=== PATIENT | female | born 1945 | race Caucasian/White ===

== ENCOUNTER 2019-04-25 10:57 | Emergency (ER) | payer MEDICARE, BC ==
[~2019-04-25] VITALS: Ht 172.7 cm; Wt 89.4 kg
[~2019-04-25 10:57] MED LIST: BUDE32NIS; CITRACAL; Coumadin2 MG PO; DIAZ5 PO; ERGO400 PO; FURO20 PO; HYDMOR2 PO; IBAN2.5 PO; IRBE150 PO; IRBHYD300 PO; LANS30EC PO; MONT10T PO; POTA10T PO; ROSU5 PO; Reclast 55 MG/100 M IV; WARF4 PO
[2019-04-25 11:35] LABS: BASOPHILS ABSOLUTE AUTO 0.02 K/mm3 (0.00-0.23); BASOPHILS PERCENT AUTO 0 % (0-2); EOSINOPHILS ABSOLUTE AUTO 0.05 K/mm3 (0.00-0.68); EOSINOPHILS PERCENT AUTO 1 % (0-6); Hematocrit 25.5 % (33.0-51.0); Hemoglobin 8.2 g/dL (11.5-16.0); IMMATURE GRAN ABSOLUTE AUTO 0.05 K/mm3 (0.00-0.10); IMMATURE GRAN PERCENT AUTO 1 % (0-1); LYMPHOCYTES PERCENT AUTO 17 % (21-46); MONOCYTES ABSOLUTE AUTO 0.58 K/mm3 (0.16-1.47); MONOCYTES PERCENT AUTO 8 % (4-13); Mean Corpuscular HGB 31.9 pg (26.0-34.0); Mean Corpuscular HGB Conc 32.2 g/dL (31.5-36.5); Mean Corpuscular Volume 99 fL (80-100); Mean Platelet Volume 10.3 fL (9.1-12.4); NEUTROPHILS ABSOLUTE AUTO 5.18 K/mm3 (1.96-9.15); NEUTROPHILS PERCENT AUTO 73 % (41-73); Platelet Count 185 K/mm3 (150-400); RDW Coefficient Variation 14.1 % (11.7-14.2); RDW Standard Deviation 51.4 fL (35.1-46.3); Red Blood Cell Count 2.57 M/mm3 (3.80-5.20); White Blood Cell Count 7.08 K/mm3 (4.00-11.30)
[2019-04-25 11:49] LABS: Alanine Aminotransfer (ALT/SGP 30 U/L (12-78); Albumin, Blood 2.1 g/dL (3.4-5.0); Albumin/Globulin Ratio 0.4 (0.8-1.8); Alk Phos 61 U/L (50-136); Anion Gap 5 mmol/L (6-16); Aspartate Aminotrans (AST/SGOT 47 U/L (12-37); Bilirubin, Total 0.4 mg/dL (0.1-1.0); Blood Urea Nitrogen 32 mg/dL (8-24); Bun/Creatinine Ratio 27.1 (12.0-20.0); CO2, Blood 25 mmol/L (21-32); Calcium, Blood 7.9 mg/dL (8.5-10.1); Chloride, Blood 104 mmol/L (98-108); Creatinine, Blood 1.18 mg/dL (0.40-1.00); Globulin, Blood 5.4 g/dL (2.2-4.0); Glomerular Filtration Rate 48 (60-); Glucose, Blood 121 mg/dL (70-99); Potassium, Blood 4.8 mmol/L (3.5-5.5); Sodium, Blood 134 mmol/L (136-145); Total Protein, Blood 7.5 g/dL (6.4-8.2); Troponin I <0.015 ng/mL (0.000-0.040)
[2019-04-25 11:59] LABS: International Normalized Ratio 1.97; Prothrombin Time Results 19.6 Sec (9.7-11.5)
[2019-04-25] MEDS ORDERED: WARF1 PO (16:22)
[2019-04-25] MEDS ORDERED: Avapro300 MG PO (16:23)
[2019-04-25] MEDS ORDERED: MONT10T PO (16:24)
[2019-04-25] MEDS ORDERED: THERA-D2000 UNIT PO (16:24)
[2019-04-25] MEDS ORDERED: FURO20 PO (16:24)
[2019-04-25] MEDS ORDERED: POTA10T PO (16:25)
[2019-04-25] MEDS ORDERED: THERA1 EACH PO (16:25)
[2019-04-25] MEDS ORDERED: GLUCOSAMINE-CH1 EAC2 PO (16:26)
[2019-04-25] MEDS ORDERED: CLARITIN10 MG PO (16:27)
== END 2019-04-25 20:54 | disposition home or self-care (01) ==
LOC: ER 10:57
PROVIDERS: Emergency Medicine
DX: D64.9 Anemia, unspecified (principal); M96.840 Postprocedural hematoma of a musculoskeletal structure following a musculoskeletal system procedure; I10 Essential (primary) hypertension; Z96.652 Presence of left artificial knee joint; Z86.73 Personal history of transient ischemic attack (TIA), and cerebral infarction without residual deficits; Z88.5 Allergy status to narcotic agent; Z79.899 Other long term (current) drug therapy; Z79.01 Long term (current) use of anticoagulants
CPT/HCPCS: 36415; 36430; 71046; 80053; 84484; 85025; 85610; 86850; 86900; 86901; 86923; 93005; 93010; 99284-25; J7030; P9016

== ENCOUNTER → 2019-11-29 | Outpatient (CLI) | payer MEDICARE, BC ==
[~2019-11-29] MED LIST changes: +Avapro300 MG PO; +CLARITIN10 MG PO; +GLUCOSAMINE-CH1 EAC2 PO; +THERA-D2000 UNIT PO; +THERA1 EACH PO; +WARF1 PO
[2019-11-29 11:58] LABS: Bilirubin, Urine Neg (Neg); Blood, Urine 1+ (Neg); Glucose Qualitative, Urine Neg (Neg); Ketones, Urine Neg (Neg); Leukocyte Esterase, Urine 3+ (Neg); Nitrite, Urine Neg (Neg); Protein, Urine 2+ (Neg); Urobilinogen, Urine NORM (Normal)
[2019-11-29 12:31] LABS: Appearance, Urine Turbid (Clear); Color, Urine Yellow (P-Yellow)
[2019-11-29 12:33] LABS: Bacteria Many /hpf; Squamous Epithelial Cells Rare /hpf (Few); White Blood Cells, Urine 50-100 /hpf (0-5)
== END | disposition home or self-care (01) ==
LOC: LAB SHORT 10:26 → LAB 10:26
PROVIDERS: Internal Medicine
DX: R35.0 Frequency of micturition (principal)
CPT/HCPCS: 81001; 87077; 87086; 87186

== ENCOUNTER → 2019-12-07 | Outpatient (CLI) | payer MEDICARE, BC ==
[2019-12-07 11:45] LABS: Source, Urine Clean Catch
[2019-12-07 15:24] LABS: Bilirubin, Urine Neg (Neg); Blood, Urine Neg (Neg); Glucose Qualitative, Urine Neg (Neg); Ketones, Urine Neg (Neg); Leukocyte Esterase, Urine 1+ (Neg); Nitrite, Urine Neg (Neg); Protein, Urine 2+ (Neg); Specific Gravity, Urine 1.015 (1.003-1.022); Urobilinogen, Urine NORM (Normal)
[2019-12-07 15:48] LABS: Appearance, Urine Clear (Clear); Color, Urine Yellow (P-Yellow)
[2019-12-07 16:03] LABS: Bacteria Rare /hpf; Mucus Mod (0-Heavy); Squamous Epithelial Cells Few /hpf (Few)
[2019-12-07 16:04] LABS: Granular Casts 0-2 /lpf (0)
== END | disposition home or self-care (01) ==
LOC: OLS 11:42 → LAB SHORT 11:42
PROVIDERS: Internal Medicine
DX: N39.0 Urinary tract infection, site not specified (principal)
CPT/HCPCS: 81001; 87086

== ENCOUNTER → 2019-12-16 | Outpatient (CLI) | payer MEDICARE, BC ==
[2019-12-16 10:24] LABS: Bilirubin, Urine Neg (Neg); Blood, Urine Neg (Neg); Glucose Qualitative, Urine Neg (Neg); Ketones, Urine Neg (Neg); Leukocyte Esterase, Urine Neg (Neg); Nitrite, Urine Neg (Neg); Protein, Urine Neg (Neg); Urobilinogen, Urine NORM (Normal); pH, Urine 6.5 (5.0-8.0)
[2019-12-16 10:28] LABS: Appearance, Urine Clear (Clear); Color, Urine Yellow (P-Yellow)
== END | disposition home or self-care (01) ==
LOC: LAB SHORT 06:40 → OLS 06:40
PROVIDERS: Internal Medicine
DX: N39.0 Urinary tract infection, site not specified (principal)
CPT/HCPCS: 81003

== ENCOUNTER → 2020-12-03 | Outpatient (CLI) | payer MEDICARE, BC ==
[2020-12-03 12:08] LABS: Appearance, Urine Hazy (Clear); Bilirubin, Urine Neg (Neg); Blood, Urine 1+ (Neg); Color, Urine Yellow (P-Yellow); Glucose Qualitative, Urine Neg (Neg); Ketones, Urine Neg (Neg); Leukocyte Esterase, Urine 3+ (Neg); Nitrite, Urine Pos (Neg); Protein, Urine 2+ (Neg); Urobilinogen, Urine NORM (Normal)
[2020-12-03 12:30] LABS: Bacteria Many /hpf; Squamous Epithelial Cells Few /hpf (Few); White Blood Cells, Urine 25-50 /hpf (0-5)
== END | disposition home or self-care (01) ==
LOC: LAB 10:30 → LAB SHORT 10:30
PROVIDERS: Internal Medicine
DX: R35.0 Frequency of micturition (principal)
CPT/HCPCS: 81001; 87077; 87086; 87186

== ENCOUNTER → 2020-12-14 | Outpatient (CLI) | payer MEDICARE, BC ==
[2020-12-14 13:42] LABS: Appearance, Urine Clear (Clear); Bilirubin, Urine Neg (Neg); Blood, Urine Neg (Neg); Color, Urine Yellow (P-Yellow); Glucose Qualitative, Urine Neg (Neg); Ketones, Urine Neg (Neg); Leukocyte Esterase, Urine 1+ (Neg); Nitrite, Urine Neg (Neg); Protein, Urine 2+ (Neg); Urobilinogen, Urine NORM (Normal)
[2020-12-14 13:58] LABS: Bacteria Mod /hpf; Red Blood Cells, Urine Not Seen /hpf (0-2); Squamous Epithelial Cells Few /hpf (Few); White Blood Cells, Urine 0-2 /hpf (0-5)
== END | disposition home or self-care (01) ==
LOC: LAB 10:50 → LAB SHORT 10:50
PROVIDERS: Internal Medicine
DX: R35.0 Frequency of micturition (principal)
CPT/HCPCS: 81001; 87077; 87086; 87186

== ENCOUNTER → 2020-12-31 | Outpatient (CLI) | payer MEDICARE, BC ==
[2020-12-31 09:49] LABS: International Normalized Ratio 1.22
== END | disposition home or self-care (01) ==
LOC: OLS 06:59 → LAB SHORT 06:59 → LAB FUT 12-17 15:00
PROVIDERS: Internal Medicine
DX: I74.4 Embolism and thrombosis of arteries of extremities, unspecified (principal)
CPT/HCPCS: 36415; 85610

== ENCOUNTER 2021-10-13 19:45 | Emergency (ER) | payer MEDICARE, BC ==
[~2021-10-13] VITALS: Ht 170.2 cm; Wt 88.5 kg
[2021-10-13 20:18] LABS: BASOPHILS ABSOLUTE AUTO 0.02 K/mm3 (0.00-0.23); BASOPHILS PERCENT AUTO 0 % (0-2); EOSINOPHILS ABSOLUTE AUTO 0.07 K/mm3 (0.00-0.68); EOSINOPHILS PERCENT AUTO 1 % (0-6); Hematocrit 37.8 % (33.0-51.0); Hemoglobin 12.3 g/dL (11.5-16.0); IMMATURE GRAN ABSOLUTE AUTO 0.02 K/mm3 (0.00-0.10); IMMATURE GRAN PERCENT AUTO 0 % (0-1); LYMPHOCYTES ABSOLUTE AUTO 1.19 K/mm3 (0.84-5.20); LYMPHOCYTES PERCENT AUTO 20 % (21-46); MONOCYTES ABSOLUTE AUTO 0.53 K/mm3 (0.16-1.47); MONOCYTES PERCENT AUTO 9 % (4-13); Mean Corpuscular HGB 30.6 pg (26.0-34.0); Mean Corpuscular HGB Conc 32.5 g/dL (31.5-36.5); Mean Corpuscular Volume 94 fL (80-100); Mean Platelet Volume 8.9 fL (9.1-12.4); NEUTROPHILS ABSOLUTE AUTO 3.99 K/mm3 (1.96-9.15); NEUTROPHILS PERCENT AUTO 69 % (41-73); Platelet Count 243 K/mm3 (150-400); RDW Coefficient Variation 12.9 % (11.7-14.2); RDW Standard Deviation 44.7 fL (35.1-46.3); Red Blood Cell Count 4.02 M/mm3 (3.80-5.20); White Blood Cell Count 5.82 K/mm3 (4.00-11.30)
[2021-10-13 20:40] LABS: Albumin, Blood 2.9 g/dL (3.4-5.0); Albumin/Globulin Ratio 0.4 (0.8-1.8); Bilirubin, Total 0.3 mg/dL (0.1-1.0); Bun/Creatinine Ratio 28.6 (12.0-20.0); Calcium, Blood 8.5 mg/dL (8.5-10.1); Creatinine, Blood 0.98 mg/dL (0.40-1.00); Globulin, Blood 7.3 g/dL (2.2-4.0); Potassium, Blood 4.1 mmol/L (3.5-5.5); Total Protein, Blood 10.2 g/dL (6.4-8.2)
[2021-10-13] MEDS ORDERED: JANTOVEN3 M2 PO (20:55)
== END 2021-10-13 23:50 | disposition home or self-care (01) ==
LOC: ER 19:45
PROVIDERS: Physician Assistant
DX: R07.9 Chest pain, unspecified (principal); I10 Essential (primary) hypertension; Z79.899 Other long term (current) drug therapy
CPT/HCPCS: 36415; 71045; 71260; 80053; 83690; 83880; 84484; 85025; 93005; 93010; 99285-25; Q9967

== ENCOUNTER → 2021-12-11 | Outpatient (CLI) | payer MEDICARE, BC ==
[~2021-12-11] MED LIST changes: +JANTOVEN3 M2 PO
== END ==
LOC: LAB 14:30 → LAB SHORT 14:30
DX: N39.0 Urinary tract infection, site not specified (principal); R35.0 Frequency of micturition
CPT/HCPCS: 87086

== ENCOUNTER → 2023-08-26 | Outpatient (CLI) | payer MEDICARE, BC ==
[2023-08-26 08:37] LABS: International Normalized Ratio 3.08; Prothrombin Time Results 30.3 Sec (9.7-11.5)
== END | disposition home or self-care (01) ==
LOC: LAB 08:07 → LAB SHORT 08:07
PROVIDERS: Internal Medicine
DX: D68.8 Other specified coagulation defects (principal)
CPT/HCPCS: 85610